=== PATIENT | male | born 1980 | race Caucasian/White ===

== ENCOUNTER 2024-07-10 00:25 | Emergency (ER) | payer OTHER ==
[~2024-07-10] VITALS: Ht 172.7 cm; Wt 114.0 kg
[2024-07-10 00:36] VITALS: O2SAT 98
[2024-07-10] MEDS: ACETAMINOPHEN 325MG TABLET PO ONE (02:13)
[2024-07-10 03:14] VITALS: BP 125/71; PULSE 78; RESP 16; TEMP 36.6; O2SAT 99
== END 2024-07-10 03:15 | disposition home or self-care (01) ==
LOC: ER 00:25
DX: S01.511A Laceration without foreign body of lip, initial encounter (principal); X58.XXXA Exposure to other specified factors, initial encounter; Y93.89 Activity, other specified; Y92.89 Other specified places as the place of occurrence of the external cause; Y99.8 Other external cause status
CPT/HCPCS: 12013; 70486; 99284